=== PATIENT | male | born 1955 | race American Indian/Alaskan Native ===

== ENCOUNTER 2018-01-04 06:06 | Day surgery (SDC) | payer OTHER ==
[2018-01-04] MEDS ORDERED: Propofol 10 mg/ml Inj (20 ML) ONE (09:12)
--- NOTE | 2018-01-04 09:14 | CP.SDSHP ---
Same Day Surgery H & P - History Proposed Procedure: colonoscopy Pre-Op Diagnosis: anemia - Previous Medical/Surgical History Cardiac: Hypertension - Allergies Allergies: Allergies No Known Allergies Allergy (Verified 09/01/15 09:30) - Physical Exam Vital Signs: Vital Signs 01/04/18 06:51 Temperature 97 F L Pulse Rate 80 Respiratory 20 Rate Blood Pressure 151/90 H O2 Sat by Pulse 98 Oximetry Mental Status: Alert & Oriented x3 Neuro: WNL Heart: WNL Lungs: WNL GI: WNL - {Optional Preform as Required} Abdomen: WNL - Impression Impression: anemia Pt. Evaluated Today:Candidate for Anesthesia & Procedure: Yes - Date & Time Date: 01/04/18 Time: 08:50 Short Stay Discharge - Short Stay Discharge Admitting Diagnosis/Reason for Visit: ANEMIA, UNSPECIFIED Disposition: HOME/ ROUTINE
[2018-01-04 09:56] VITALS: TEMP 97.8; O2SAT 100
[2018-01-04 10:37] VITALS: RESP 16
[2018-01-04 10:53] VITALS: BP 118/76; PULSE 70
== END 2018-01-04 10:45 | disposition home or self-care (01) ==
LOC: C.ENDO 06:06
PROVIDERS: ATTEND Internal Medicine Gastroenterology
DX: D12.0 Benign neoplasm of cecum (principal); D64.9 Anemia, unspecified; D12.3 Benign neoplasm of transverse colon; D12.8 Benign neoplasm of rectum; K57.30 Diverticulosis of large intestine without perforation or abscess without bleeding; I10 Essential (primary) hypertension
CPT/HCPCS: 45380; 45384; 88305; J2704

== ENCOUNTER 2018-06-21 06:57 | Day surgery (SDC) | payer OTHER ==
[2018-06-21 07:59] VITALS: O2SAT 100
[2018-06-21] MEDS ORDERED: Propofol 10 mg/ml Inj (20 ML) ONE (08:10)
[2018-06-21] MEDS ORDERED: Lactated Ringer's 1,000 ML IV ONE (08:15)
--- NOTE | 2018-06-21 08:32 | CP.SDSHP ---
Same Day Surgery H & P - History Proposed Procedure: endoscopy Pre-Op Diagnosis: reflux, anemia - Previous Medical/Surgical History Cardiac: Hypertension - Allergies Allergies: Allergies No Known Allergies Allergy (Verified 06/21/18 07:43) - Physical Exam Vital Signs: Vital Signs 06/21/18 07:30 Temperature 97.8 F Pulse Rate 80 Respiratory 20 Rate Blood Pressure 178/90 H O2 Sat by Pulse 100 Oximetry Mental Status: Alert & Oriented x3 Neuro: WNL Heart: WNL Lungs: WNL GI: WNL - {Optional Preform as Required} Abdomen: WNL - Impression Impression: anemia, reflux Pt. Evaluated Today:Candidate for Anesthesia & Procedure: Yes - Date & Time Date: 06/21/18 Time: 08:15 Short Stay Discharge - Short Stay Discharge Admitting Diagnosis/Reason for Visit: ANEMIA Disposition: HOME/ ROUTINE
[2018-06-21 08:51] VITALS: TEMP 98.4
[2018-06-21 10:32] VITALS: BP 161/89; PULSE 77; RESP 12
== END 2018-06-21 10:30 | disposition home or self-care (01) ==
LOC: C.ENDO 06:57
PROVIDERS: ATTEND Internal Medicine Gastroenterology
DX: D64.9 Anemia, unspecified (principal); K29.70 Gastritis, unspecified, without bleeding
CPT/HCPCS: 43239; 88305; J2704; J7120